=== PATIENT | male | born 1935 | race Caucasian/White ===

== ENCOUNTER 2025-11-23 09:22 | Outpatient (CLI) | payer MEDICARE, BC ==
[2025-11-23 09:52] LABS: MEAN PLATELET VOLUME 9.1 FL (7.4-10.4); RED CELL DISTRIBUTION WIDTH 16.2 % (11.5-14.5)
[2025-11-23 10:03] LABS: INR 2.1 INR
[2025-11-23 10:21] LABS: APTT 43 SECONDS (22-32)
[2025-11-23 10:27] LABS: CREATININE 1.25 MG/DL (0.60-1.10); PRO BRAIN NATRIURETIC PEPTIDE 1203 PG/ML (0-450); TOTAL CARBON DIOXIDE 29.0 MMOL/L (24-32); eGFR 54 ML/MIN
--- NOTE | 2025-11-23 10:33 | RADIOLOGY REPORT ---
CLINICAL HISTORY: CAROTID STENOSIS,SOB,AV STENOSIS TECHNIQUE: Chest 2 views of the chest were obtained. COMPARISON: None FINDINGS: The heart size is mildly enlarged with pulmonary vascular congestion. There are atherosclerotic calcifications of the aortic arch. There is a left mid/lower lung opacity, likely moderate pleural effusion and atelectasis. IMPRESSION: Pulmonary vascular congestion with moderate left pleural effusion/atelectasis.
--- NOTE | 2025-11-23 14:40 | VASCULAR REPORT ---
ULTRASOUND CAROTID DUPLEX BILATERAL REASON FOR EXAM: Preoperative evaluation prior to TAVR. COMPARISON: None TECHNIQUE: Using real-time freeze-frame technique with a high-frequency small parts transducer, multiple longitudinal and transverse sections were obtained. Simultaneous color flow Doppler imaging was performed. FINDINGS: Moderate calcified and noncalcified plaque is present in both carotid bulbs and internal carotid arteries. Waveforms are normal. Flow is laminar throughout. Peak systolic velocities as well as ICA/CCA ratios are normal. Flow through the vertebral and external carotid arteries is antegrade bilaterally. 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 Any narrowing is less than 50%. Measurement of carotid stenosis is based on velocity parameters that correlate the residual internal carotid diameter with that of the more distal vessel in accordance with the [place] Symptomatic Carotid Endarterectomy Trial (NASCET).
--- NOTE | 2025-11-23 21:06 | RADIOLOGY REPORT ---
EXAM: CT CTA TAVR CLINICAL HISTORY: AV STENOSIS,SOB,CAROTID STENOSIS TECHNIQUE: Arterial phase spiral acquisitions obtained through the chest, abdomen, and pelvis. Multiplanar reconstructions were generated. Using automated software tools and 3-D reconstructions, imaging analysis of the aortic valve was performed. Dose reduction effected using automated exposure control and iterative reconstruction technique. 2-D and 3-D reformations are generated at a separate independent workstation. All CT scans at this facility are performed using dose modulation techniques as appropriate to a performed exam including the following: automated exposure control with adjustment of the mA and/or kV according to patient size. RADIATION DOSE: CTDI vol: 66 mGy DLP: 2411 mGy-cm Dose information generated by the CT scanner is available in PACS. IV Contrast: 100 cc Omnipaque 350 COMPARISON: None FINDINGS: Aortic valve annulus diameter: 28.3 x 24.5 mm. Aortic valve area: 5.29 cm2. Perimeter: 82.8 mm. Diameter through left coronary sinus: 36.7 mm. Diameter through right coronary sinus: 35.4 mm. Diameter through the noncoronary sinus: 36.9 mm. Diameter at the sinotubular junction: 30.6 mm. Distance from the right coronary sinus to right coronary orifice: 17.5 mm. Distance from left coronary sinus to left coronary orifice: 12.8 mm. Diameter of ascending aorta: 40.8 mm. Diameter of abdominal aorta: 14.6 mm. Diameter of the right common iliac artery: 8.15 mm. Diameter of the right external iliac artery: 6.90 mm. Diameter of the right common femoral artery: 6.88 mm. Diameter of left common iliac artery: 8.39 mm. Diameter of the left external iliac artery: 5.80 mm. Diameter of the left common femoral artery: 6.21 mm. Optimal coplanar projections: 3 cusp view- BHUTANESE 17, ORACLE [employer] DEVELOPER 0 Anterior view -SPENCE 0, CAU 22 No-ORACLE APEX DEVELOPER-CAU view -BHUTANESE 17, CAU 0 Other findings: Chest: There is a 15 x 25 mm pleural-based lobulated mass in the medial left upper lobe of the lung there is a moderate-sized left pleural effusion. There is moderate dependent consolidation in the lingula and left lower lobe. There is no right pleural effusion. There is a 3 mm nodule at the right upper lobe apex. There are a few scattered 2-3 mm nodules identified in the right upper and right middle lobes. The heart appears enlarged. There is no pericardial effusion. There is no thoracic aortic dissection. No pathologic lymphadenopathy is identified in the chest by size criteria. Spleen: The spleen is within normal limits. Liver: The liver is not enlarged. There are several subcentimeter hyperenhancing areas within the liver, likely flash filling hemangiomas. Gallbladder/bile ducts: There is no intrahepatic biliary dilation. There are several tiny gallstones within the gallbladder. Pancreas: Unremarkable. Adrenal glands: The adrenal glands appear normal. Kidneys and ureters: The kidneys enhance symmetrically. There are bilateral simple renal cysts, the largest of which is a 6.0 cm simple cyst at the inferior pole of the right kidney, and none of which require dedicated follow-up. There are 3 mm and 4 mm nonobstructive calculi at the inferior pole of the right kidney. Urinary bladder: The urinary bladder appears thickened and trabeculated, suggestive of chronic outlet obstruction. Reproductive structures: The prostate is massively enlarged. Peritoneum/gastrointestinal: There is extensive sigmoid diverticulosis without evidence of diverticulitis. The colonic stool burden is small. The appendix is normal. There is no distention of the small bowel. Lymph nodes: No pathologic lymphadenopathy is identified in the abdomen or pelvis by size criteria. Bones: There is old healed fracture of the left 10th rib. There is extensive degenerative change in the lumbar spine. Soft tissues: There is a small fat containing umbilical hernia. There is a small fat containing left inguinal hernia. IMPRESSION: There is a 25 mm lobulated mass in the left upper lobe of the lung concerning for neoplasm. No pathologic lymphadenopathy is identified. There are a few 2-3 mm nodules identified in the right lung and attention is recommended on follow- up scans. TAVR MEASUREMENTS ABOVE. Moderate-sized left pleural effusion. Nonobstructive right nephrolithiasis. Cholelithiasis. Fleischner Society Guidelines for Incidental Pulmonary Nodules: SOLID NODULES Single low-risk: < 6 mm No follow up. 6-[address] at 6-12 months, then consider CT at 18-24 months. > [address] at 3 months, PET/CT or bx. Single high risk: < [address] at 12 months. 6-[address] at 6-12 months, then consider CT at 18-24 months. > [address] at 3 months, PET/CT or bx. Multiple low risk: < 6 mm No follow up. 6-[address] at 3-6 months, then consider CT at 18-24 months. > [address] at 3-6 months, then consider CT at 18-24 months. Multiple high risk: < [address] at 12 months. 6-[address] at 3-6 months, then CT at 18-24 months. > [address] at 3-6 months, then CT at 18-24 months. SUBSOLID NODULES Ground glass: < 6 mm No follow up. > [address] at 6-12 months, then CT every 2 years for 5 years. Part solid: < 6 mm No follow up. > [address] at 3-6 months. If stable with solid component <6mm, annual CT for 5 years. Multiple: < [address] at 3-6 months. If stable, consider CT at 2 and 4 years. > [address] at 3-6 months. Subsequent based on most suspicious nodule. Notes: Recommendations do not apply to cancer screening, patient with immunosuppression or known primary cancer. Reference: Radiology 2017; Neohoemely et al; [id number]
== END 2025-11-23 23:59 | disposition home or self-care (01) ==
LOC: RAD 09:22
PROVIDERS: ATTEND Internal Medicine Cardiovascular Disease
DX: J90 Pleural effusion, not elsewhere classified (principal); I35.0 Nonrheumatic aortic (valve) stenosis; R06.02 Shortness of breath; I65.29 Occlusion and stenosis of unspecified carotid artery; I51.7 Cardiomegaly; R91.8 Other nonspecific abnormal finding of lung field; K80.20 Calculus of gallbladder without cholecystitis without obstruction; N20.0 Calculus of kidney; R59.0 Localized enlarged lymph nodes
CPT/HCPCS: 36415; 71046; 71275; 74174; 75572; 80053; 83880; 85025; 85610; 85730; 93880; Q9967